=== PATIENT | female | born 1935 | race Caucasian/White ===

== ENCOUNTER → 2020-08-27 13:36 | Outpatient (BNVA) | payer MEDICARE, SELFPAY | PROVIDERS: Visit Provider Orthopaedic Surgery | DX: M75.51 Bursitis of right shoulder (principal) | CPT/HCPCS: 20610; 99212; J1100 ==

== ENCOUNTER 2020-10-19 10:03 | Outpatient (REF) | payer MEDICARE, SELFPAY ==
[2020-10-19 11:36] LABS: Blood Urea Nitrogen 26 mg/dL (9-16); Estimated Glomerular Filt Rate 31
== END 2020-10-19 10:04 | disposition home or self-care (01) ==
LOC: HO.HMGCLDS 10:03
PROVIDERS: PCP Internal Medicine; Visit Provider Internal Medicine
DX: R79.9 Abnormal finding of blood chemistry, unspecified (principal)
CPT/HCPCS: 82565; 84520

== ENCOUNTER 2020-11-23 10:12 | Outpatient (REF) | payer MEDICARE, SELFPAY ==
[2020-11-23 11:31] LABS: Blood Urea Nitrogen 24 mg/dL (9-16); Estimated Glomerular Filt Rate 23
== END 2020-11-23 10:13 | disposition home or self-care (01) ==
LOC: HO.HMGCLDS 10:12
PROVIDERS: PCP Internal Medicine; Visit Provider Internal Medicine
DX: R79.89 Other specified abnormal findings of blood chemistry (principal)
CPT/HCPCS: 36415; 82565; 84520

== ENCOUNTER 2020-12-25 10:17 | Outpatient (REF) | payer MEDICARE, SELFPAY ==
[2020-12-25 12:57] LABS: Blood Urea Nitrogen 22 mg/dL (9-16); Estimated Glomerular Filt Rate 37
== END 2020-12-25 10:18 | disposition home or self-care (01) ==
LOC: HO.LNP 10:17
PROVIDERS: PCP Internal Medicine; Visit Provider Internal Medicine
DX: R79.9 Abnormal finding of blood chemistry, unspecified (principal)
CPT/HCPCS: 82565; 84520

== ENCOUNTER 2021-01-04 14:00 | Outpatient (RCR) | payer MEDICARE, SELFPAY ==
--- NOTE | 2020-09-08 15:10 | MHC.PT.EP ---
[facility] [place] [facility] [place] [facility] [place] [facility] [address] [phone] F: [phone] F: [phone] F: [phone] F: [phone] Physical Therapy Plan of Care Date of Evaluation: 09/08/20 Date of Surgery: n/a Diagnosis: R shoulder bursitis Assessment: Patient is an 85 year old R handed female who presents with s/s consistent with R shoulder bursitis. She is retired but does enjoy being on her computer. Patient past medical history includes recent stent placement, 3 lumbar laminectomies. Current impairments include pain, posture, ROM, strength, safety, independence, activity tolerance and functional mobility. Functional limitations include decreased ability to reach, carry, push, pull, lift, sleep. Patient is motivated with good rehab potential. Skilled PT will address impairments and functional limitations in order to achieve goals. 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 Manual therapy to restore motion and function. Therapeutic exercise to improve strength and flexibility. Neuromuscular re-education for posture and balance. Therapeutic activities to return to functional activities of daily living. Please sign and return to therapist. Thank you for your referral.
--- NOTE | 2021-03-05 07:19 | MHC.PT.DC ---
[facility] [place] [facility] [place] [facility] [place] Office [address]aryn Mc [address] [facility] [phone] F: [phone] F: [phone] F: [phone] F: [phone] Physical Therapy Discharge Report Diagnosis: R shoulder bursitis Date of Surgery: n/a Date of Evaluation: 09/08/20 Date of Discharge: 01/04/21 Treatments to Date: 18 Cancellations to Date: No Shows to Date: Discharge Status: Independent with HEP Discharge Summary: difficulty progressing due to forearm pain. we discussed at length changing postures and positions related to computer use as well as frequent breaks. while she improved with shoulder ROM, strength and postural awareness, she still had some forearm discomfort resulting in functional limitations. She is I with HEP. Electronically signed by: Mahendra Harris PT Please sign and return to therapist. Thank you for your referral.
== END 2021-03-05 07:20 | disposition home or self-care (01) ==
LOC: HO.PTCHIC 14:00
PROVIDERS: PCP Internal Medicine; Visit Provider Orthopaedic Surgery
DX: M75.51 Bursitis of right shoulder (principal)
CPT/HCPCS: 97110; 97140; 97162; 97530